=== PATIENT | male | born 1990 | race Two or more races ===

== ENCOUNTER 2016-04-14 16:11 | Emergency (ER) | payer SELFPAY ==
--- NOTE | 2016-04-14 18:43 | UC ---
Respiratory Complaint HPI - HPI Summary HPI Summary: cough, scratchy throat, sweats at night and cough worse at night x 6 months. No fever. No sputum. Pt [place] on a [place] farm who has been in this country x 6 years. He does not smoke cigarettes. No hx of TB and no known exposure to TB. Does not know if he has had BCG. Pt speaks primarily [place]ivian, although he does speak [place]an. I also speak and understand some Bolivian. Pt chooses not to use time analysis clerk services and states he understands me and I in turn voice that I understand him. There is a male co -worker also present in the room who witnesses this interaction. - History of Current Complaint Stated Complaint: CONGESTION Time Seen by Provider: 04/14/16 18:42 Hx Obtained From: Patient, Family/Assistant Floor Covering Printer - male co-worker Onset/Duration: Gradual Onset, Lasting Weeks - 6months, Still Present Timing: Constant Severity Initially: Moderate Severity Currently: Moderate Pain Intensity: 0 Pain Scale Used: 0-10 Numeric Character: Cough: Nonproductive Aggravating Factors: Allergens - possible, but OTC allergy meds did not help Alleviating Factors: Nothing Associated Signs And Symptoms: Negative: Fever, Chills, Nasal Congestion - Risk Factors Pulmonary Embolism Risk Factors: Negative Cardiac Risk Factors: Negative Pseudomonas Risk Factors: Negative Tuberculosis Risk Factors: Negative - Allergies/Home Medications Allergies/Adverse Reactions: Allergies Allergy/AdvReac Type Severity Reaction Status Date / Time antibiotic/unknown Allergy Intermediate Diarrhea Uncoded 04/13/14 17:40 PMH/Surg Hx/FS Hx/Imm Hx Previously Healthy: Yes - Surgical History Surgical History: None - Family History Known Family History: Negative: Respiratory Disease - Social History Occupation: Employed Full-time - migrant horticultural farmer [place] Alcohol Use: None Substance Use Type: None Smoking Status (MU): Never Smoked Tobacco Review of Systems Constitutional: Other - sweats Skin: Negative Eyes: Negative ENT: Negative Respiratory: Cough Cardiovascular: Negative Gastrointestinal: Negative Genitourinary: Negative Motor: Negative Neurovascular: Negative Musculoskeletal: Negative Neurological: Negative Psychological: Negative All Other Systems Reviewed And Are Negative: Yes Physical Exam Triage Information Reviewed: Yes Appearance: Well-Appearing, No Pain Distress, Well-Nourished Vital Signs: bradycardia noted, states it is normal for him. Vital Signs Reviewed: Yes Eyes: Positive: Conjunctiva Clear ENT: Positive: Pharynx normal, TMs normal Neck: Positive: Supple, Nontender, No Lymphadenopathy Respiratory: Positive: Chest non-tender, Lungs clear, Normal breath sounds, No respiratory distress Cardiovascular: Positive: No Murmur, Pulses Normal, Brisk Capillary Refill, Bradycardia Musculoskeletal: Positive: Strength Intact, ROM Intact Neurological: Positive: Alert, Muscle Tone Normal Psychological Exam: Normal Skin: Positive: Other - thumbnail on left and index finger on right with brown vertical streak on fingernail; no clubbing Respiratory Course/Dx - Course Course Of Treatment: discussed diff dx and possibility of doing xray. Pt does not have health insurance and prefers not to have chest xray done at this time after I advised him that the physical exam was normal for the lungs. We also discussed possible TB with cough worse at night and sweats. Pt has not sputum and no fever and no known exposure, has not been back [place] for 6 years. Pt agrees to try empiric treatment for possible allergies (such as dust and mold that he may be exposed to on the farm) and possible bronchospasm/asthma/ bronchitis. I advised him that if he is no better in 10 days, that he should seek medical attention again. Pt and the coworker voice understanding. Pt's discharge papers are printed in Bolivian for him. - Differential Dx/Diagnosis Differential Diagnosis/HQI/PQRI: Asthma, Bronchitis, Lower Resp Infection, Tuberculosis, Other - allergies Provider Diagnoses: allergies. bronchospasm. asthma. bronchitis Discharge - Discharge Plan Condition: Stable Disposition: HOME Prescriptions: Albuterol HFA INHALER* [Ventolin HFA Inhaler*] 2 puff INH Q4H PRN #1 mdi PRN Reason: Cough Azithromycin TAB* [Zithromax TAB (Z-HELDER) 250 mg #6 tabs] 2 tab PO .TODAY, THEN 1 DAILY #1 helder LevoCETirizine TAB (NF) [Xyzal TAB (NF)] 5 mg PO DAILY #30 tab predniSONE TAB* [Deltasone TAB*] 40 mg PO DAILY #10 tab Patient Education Materials: Asthma (ED), Upper Respiratory Infection (ED), Allergies (ED), Bronchospasm (ED) Print Language: PASHTO Referrals: No Primary Care Phys,NOPCP [Primary Care Provider] - Additional Instructions: We have given you a list of providers that are accepting new patients. Dr. Moise recommends that you should seek follow up medical attention in 10-14 days if you are not improved. You should return sooner if you develop new or worsening symptoms.
[2016-04-14 18:44] VITALS: BP 119/69
== END 2016-04-14 19:33 | disposition home or self-care (01) ==
LOC: UCCORT 16:11
DX: T78.40XA Allergy, unspecified, initial encounter (principal); J45.909 Unspecified asthma, uncomplicated; X58.XXXA Exposure to other specified factors, initial encounter; Z88.1 Allergy status to other antibiotic agents
CPT/HCPCS: 99212; G0463

== ENCOUNTER 2017-01-15 15:15 | Emergency (ER) | payer SELFPAY ==
[2017-01-15 16:55] VITALS: BP 116/63
--- NOTE | 2017-01-15 17:23 | RAD ---
Indication: LEFT lower leg pain following injury. Kicked playing soccer. Comparison: No relevant prior exams available on the [facility] PACS for comparison. Technique: AP and lateral views LEFT lower leg. REPORT AND IMPRESSION: Significant medial soft tissue swelling in the proximal to midportion. No conspicuous foreign body or subcutaneous emphysema. Negative for fracture or malalignment.
--- NOTE | 2017-01-15 17:33 | UC ---
Lower Extremity/Ankle HPI - HPI Summary HPI Summary: 26 y/o male presents to the urgent care c/o left lower leg pain and severe swelling s/p injury playing soccer yesterday night. Pt reports he was kicked in the medial aspect of his lef leg by a player. He applied ice and took an ibuprofen PO yesterday. However this morning he woke up with severe swelling and redness around the leg. Pain became worse when he started to walk. Pain is 8 /10 with walking and at touch associated with mild numbness and tingling over the foot. Pt denies fever, SOB, chest pain, N/V/D , abdominal pain. - History of Current Complaint Chief Complaint: UCLowerExtremity Stated Complaint: LEFT LEG SPORTS INJ Time Seen by Provider: 01/15/17 17:12 Hx Obtained From: Patient Onset/Duration: Sudden Onset - yesterday night s/p playing soccer, Lasting Days - 1 day Severity Initially: Moderate Severity Currently: Severe Pain Intensity: 8 Pain Scale Used: 0-10 Numeric Aggravating Factor(s): Ambulation Alleviating Factor(s): Rest Able to Bear Weight: Yes - Risk Factors Gout Risk Factors: Negative DVT Risk Factors: Negative Septic Arthritis Risk Factor: Negative - Allergies/Home Medications Allergies/Adverse Reactions: Allergies Allergy/AdvReac Type Severity Reaction Status Date / Time antibiotic/unknown AdvReac Intermediate Diarrhea Uncoded 01/15/17 16:55 Home Medications: Home Medications Ibuprofen [Ibuprofen 200 MG] 200 mg PO Q6H PRN 01/15/17 [History Confirmed 01/15] Menthol (Topical Analgesic) [Mineral Ice] 2 % EX DAILY PRN 01/15/17 [History Confirmed 01/15/17] Omeprazole CAP* [Prilosec CAP* 20 MG] 20 mg PO DAILY 01/15/17 [History Confirmed 01/15/17] PMH/Surg Hx/FS Hx/Imm Hx Previously Healthy: Yes - Pt denies PMHX - Surgical History Surgical History: None - Family History Known Family History: Positive: Hypertension Negative: Respiratory Disease - Social History Occupation: Employed Full-time Lives: With Family Alcohol Use: None Substance Use Type: None Smoking Status (MU): Never Smoked Tobacco Review of Systems Constitutional: Negative Skin: Bruising - medial aspect ot he left lower leg with pain and swelling Eyes: Negative ENT: Negative Respiratory: Negative Cardiovascular: Negative Gastrointestinal: Negative Genitourinary: Negative Motor: Negative Neurovascular: Negative Musculoskeletal: Negative Neurological: Negative Psychological: Negative Is Patient Immunocompromised?: No All Other Systems Reviewed And Are Negative: Yes Physical Exam Triage Information Reviewed: Yes Appearance: Well-Appearing, No Pain Distress, Well-Nourished - male, Thin Vital Signs: Initial Vital Signs Temp 97.7 F 01/15/17 16:47 Pulse 51 01/15/17 16:47 Resp 18 01/15/17 16:47 BP 116/63 01/15/17 16:47 Pulse Ox 100 01/15/17 16:47 Vital Signs Reviewed: Yes Eyes: Positive: Conjunctiva Clear - PERRLA, EOMI, fundi grossly normal ENT: Positive: Normal ENT inspection, Hearing grossly normal, Pharynx normal, TMs normal, Uvula midline Neck: Positive: Supple, Nontender, No Lymphadenopathy Respiratory: Positive: Chest non-tender, Lungs clear, Normal breath sounds Cardiovascular: Positive: RRR, No Murmur, Pulses Normal, Brisk Capillary Refill Abdomen Description: Positive: Nontender, No Organomegaly, Soft. Negative: CVA Tenderness (R), CVA Tenderness (L) Bowel Sounds: Positive: Present Musculoskeletal: Positive: Other: - Medial aspect midportion of the left lower leg with severe tenderness on palpation, severe swelling, echymosis with brusing around 6cm X 5cm in size. Positive calf tenderness of dorsiflexion. FROM of left knee and left ankle, Strength intact, sensation WNL, capillary refill brisk, pulses WNL. Neurological Exam: Normal Psychological Exam: Normal Skin Exam: Normal Lower Extremity Course/Dx - Course Course Of Treatment: 26 y/o male presents to the urgent care c/o left lower leg pain and severe swelling s/p injury playing soccer yesterday night. Pt reports he was kicked in the medial aspect of his lef leg by a player. He applied ice and took an ibuprofen PO yesterday. However this morning he woke up with severe swelling and redness around the leg. Pain became worse when he started to walk. Pain is 8/10 with walking and at touch associated with mild numbness and tingling over the foot. Pt denies fever, SOB, chest pain, N/V/D , abdominal pain. Hx obtained. Pt with severe tenderness and swelling and hematoma about 6cm x 5cn inb size in the medial aspect of the left lower leg and calf tenderness on examination. Left lower leg X-ray ordered, Impression: Signinficant soft tissue swelling in the proximal midportion of lef lower leg. Negative for fracture. Dr Abel consulted on Pt's symptoms and he evaluated Pt and advised to sent Pt to he [facility] to r/o compartment syndrome. I spoke to Marcy Ngo at the ER and she accepted the Pt. Pt explained on the need to r /o compartment syndorme and the risks of not going to the ER for further evaluation and treatment. Pt understood and agreed with plan of care. Pt is accompanied by Employer and he agreed he will take him to the [facility] by [place]. Pt left the clinic ambulating, hemodynamically stable and A&OX3. - Differential Dx/Diagnosis Differential Diagnosis/HQI/PQRI: Compartment Syndrome, Contusion, Fracture ( Closed), Sprain, Strain, Tendonitis Provider Diagnoses: 1- Left lower pain and swelling s/p injury r/o compartment syndrome. 2- hematoma - Physician Notifications Discussed Patient Care With: Rambo Abel - Dr Abel agreed with Pt's plan of care Discharge - Discharge Plan Condition: Stable Disposition: [facility] DEPARTMENT OF CARE FAC Patient Education Materials: Leg Pain (ED) Referrals: [facility] [Outside] No Primary Care Phys,NOPCP [Primary Care Provider] - Additional Instructions: -Por favor vaya inmediatamente a la emergencia the [facility] en [place]. necesita ser evaluado y descartar la possibilidad de que tenga sindrome de copartimiento. Riego de no ir a la emergencia es perder el pie. -please go immediately to the [facility] at [facility] for further evaluation to r/o compartment syndrome. If you don't go there is the risk of loosing you leg.
== END 2017-01-15 17:52 | disposition short-term general hospital (02) ==
LOC: UCCORT 15:15
DX: S80.12XA Contusion of left lower leg, initial encounter (principal); W50.0XXA Accidental hit or strike by another person, initial encounter; Y93.66 Activity, soccer; Y92.9 Unspecified place or not applicable; M79.662 Pain in left lower leg; R60.0 Localized edema; Z88.1 Allergy status to other antibiotic agents
CPT/HCPCS: 99212; G0463

== ENCOUNTER 2017-01-15 19:03 | Emergency (ER) | payer SELFPAY ==
--- NOTE | 2017-01-15 21:26 | RAD ---
INDICATION: Pain and edema at the LEFT calf following recent injury. COMPARISON: Tibia fibular radiographs of the same date. TECHNIQUE: Heaton scale, color Doppler, and spectral analysis of the deep veins of the LEFT lower extremity. Vessel compression, phasicity, and augmentation assessed. REPORT: The LEFT common femoral, great saphenous, profunda femoral, femoral, popliteal, peroneal, and posterior tibial veins are patent. Corresponding with the site of injury at the medial calf there is a 5.0 x 1.4 x 4.2 cm complex thin-walled fluid collection at the interface between the subcutaneous tissue plane and the muscular fascia most consistent with hematoma given the clinical context. Patency of the RIGHT common femoral vein documented. IMPRESSION: 1. No evidence for LEFT lower extremity deep venous thrombosis. 2. 5.0 x 1.4 x 4.2 cm probable loculated hematoma at the injury site. Correlate with clinical assessment. If there is clinical concern for potential abscess needle aspiration would be suggested.
[2017-01-15 23:16] VITALS: BP 129/55
--- NOTE | 2017-01-16 00:53 | ED ---
Manish Milton Nikita, scribed for Rod Fritz MD on 01/15/17 at 2222 . Lower Extremity - HPI Summary HPI Summary: This patient is a 26 year old M presenting to ED with a chief complaint of L calf pain since last night. Pt was playing soccer when he accidentally got kicked. This morning, the calf was not discolored, but after walking for a bit, the area began to show discoloration. The CC is described as swelling, erythema , and bruising. The patient rates the pain 7/10 in severity. Symptoms aggravated by nothing. Symptoms alleviated by nothing. - History of Current Complaint Chief Complaint: EDExtremityLower Stated Complaint: LT LEG PAIN Time Seen by Provider: 01/15/17 22:12 Hx Obtained From: Patient Mechanism Of Injury: Blunt Trauma Onset/Duration: Still Present Severity Initially: Moderate Severity Currently: Moderate Pain Intensity: 7 Pain Scale Used: 0-10 Numeric Timing: Constant, Lasting Hours Location: Is Discrete @ - L calf Associated Signs And Symptoms: Positive: Other - L calf brusing, swelling and erythema Aggravating Factor(s): Nothing Alleviating Factor(s): Nothing - Allergies/Home Medications Allergies/Adverse Reactions: Allergies Allergy/AdvReac Type Severity Reaction Status Date / Time antibiotic/unknown AdvReac Intermediate Diarrhea Uncoded 01/15/17 19:17 PMH/Surg Hx/FS Hx/Imm Hx Endocrine/Hematology History: Denies: Hx Diabetes Cardiovascular History: Denies: Hx Coronary Artery Disease, Hx Hypertension Infectious Disease History: No Infectious Disease History: Denies: Traveled Outside the [place] in Last 30 Days - Family History Known Family History: Positive: Hypertension Negative: Respiratory Disease - Social History Alcohol Use: None Substance Use Type: Reports: None Smoking Status (MU): Never Smoked Tobacco Review of Systems Positive: Other - L calf pain Positive: Other - bruising, erythema, and swelling of L calf All Other Systems Reviewed And Are Negative: Yes Physical Exam Triage Information Reviewed: Yes Vital Signs On Initial Exam: Initial Vitals Temp Pulse Resp BP Pulse Ox 98.3 F 65 18 125/43 100 01/15/17 19:12 01/15/17 19:12 01/15/17 19:12 01/15/17 19:12 01/15/17 19:12 Vital Signs Reviewed: Yes Appearance: Positive: Well-Appearing, No Pain Distress Skin: Positive: Warm, Dry, Other - 18 x 8 cm ecchymosis on medial aspect of L calf, no pallor Head/Face: Positive: Normal Head/Face Inspection Eyes: Positive: EOMI, LAXMI ENT: Positive: Normal ENT inspection Neck: Positive: Supple, Nontender Respiratory/Lung Sounds: Positive: Clear to Auscultation, Breath Sounds Present Cardiovascular: Positive: RRR, Other - good dorsalis pedis pulses, normal capillary refills Abdomen Description: Positive: Nontender, Soft Bowel Sounds: Positive: Present Musculoskeletal: Positive: Normal, Strength/ROM Intact Neurological: Positive: Normal, Sensory/Motor Intact, Alert, Oriented to Person Place, Time, Other - no pain with passive ROM in ankle; medial aspect of L calf is tender to palpation, lateral aspect is non-tender and soft Psychiatric: Positive: Affect/Mood Appropriate Diagnostics - Vital Signs Vital Signs Temp Pulse Resp BP Pulse Ox 01/15/17 19:12 98.3 F 65 18 125/43 100 - Laboratory Lab Statement: Any lab studies that have been ordered have been reviewed, and results considered in the medical decision making process. - Ultrasound No standard instances Ultrasound Interpretation Completed By: Radiologist - Venous Doppler study reveals 1. No evidence for LEFT lower extremity deep venous thrombosis. 2. 5.0 x 1.4 x 4.2 cm probable loculated hematoma at the injury site. Correlate with clinical assessment. If there is clinical concern for potential abscess needle aspiration would be suggested. ED physician has reviewed this radiology report and agrees. Re-Evaluation - Re-Evaluation First Eval Re-Evaluation Time: 23:02 Comment: Discussed with pt about plan to discharge. Recommends that the pt follow up with Dr. Gregory. Lower Extremity Course/Dx - Course Assessment/Plan: This patient is a 26 year old M presenting to ED with a chief complaint of L calf pain since last night. Pt was playing soccer when he accidentally got kicked. This morning, the calf was not discolored, but after walking for a bit, the area began to show discoloration. The CC is described as swelling, erythema, and bruising. The patient rates the pain 7/10 in severity. Symptoms aggravated by nothing. Symptoms alleviated by nothing. Medications reviewed. Allergies noted. Venous Doppler study reveals 1. No evidence for LEFT lower extremity deep venous thrombosis. 2. 5.0 x 1.4 x 4.2 cm probable loculated hematoma at the injury site. Correlate with clinical assessment. If there is clinical concern for potential abscess needle aspiration would be suggested. ED physician has reviewed this radiology report and agrees. Consulted Dr. Gregory at 2248 who agrees that the pt's condition does not sound like compartment syndrome. Agrees to follow up with the pt. Pt will be discharged. Pt is agreeable with this plan. PAIN/SWELLING IS ONLY ON MEDIAL ASPECT. THE POSTERIOR AND LATERAL CALF IS SOFT AND NON TENDER. THERE IS NO NEUROLOGIC DEFICIT. NORMAL DP/PT PULSE. NORMAL CAP REFILL DISTALLY. NO PAIN IN THE CALF WITH ANKLE PASSIVE ROM. THIS WAS DISCUSSED WITH ORTHOPEDICS ASSEMBLY DETAILER, DR GREGORY. HEMATOMA ON U/S. NO CLINICAL SIGNS OF COMPARTMENT SYNDROME AT THIS TIME. THIS WAS ALL DISCUSSED WITH THE PATIENT. F/U ORTHO; RETURN IF WORSE. - Diagnoses Provider Diagnoses: Hematoma of left lower extremity - Physician Notifications Discussed Care Of Patient With: Julio Gregory Time Discussed With Above Provider: 22:48 Instructed by Provider To: Other - Consulted Dr. Gregory who agrees that the pt' s condition does not sound like compartment syndrome. Agrees to follow up with the pt. Discharge - Discharge Plan Condition: Stable Disposition: HOME Patient Education Materials: Hematoma (ED) Forms: *Work Release Referrals: [facility] [Outside] Julio Gregory MD [Medical Doctor] - No Primary Care Phys,NOPCP [Primary Care Provider] - Additional Instructions: FOLLOW UP WITH ORTHOPEDICS, DR GREGORY. REST AND ELEVATE THE LEG. TAKE IBUPROFEN 600MG EVERY 6 HOURS NEEDED. RETURN TO THE EMERGENCY DEPARTMENT FOR ANY WORSENING OF YOUR CONDITION; NUMBNESS , LOSS OF BLOOD CIRCULATION, PAIN WITH PASSIVE MOTION, FEVER OR QUESTIONS OR CONCERNS. The documentation as recorded by the Manish urbina Nikita accurately reflects the service I personally performed and the decisions made by me, Rod Fritz MD.
== END 2017-01-15 23:15 | disposition home or self-care (01) ==
LOC: ED 19:03
DX: S80.12XA Contusion of left lower leg, initial encounter (principal); M79.662 Pain in left lower leg; W50.0XXA Accidental hit or strike by another person, initial encounter; Y93.66 Activity, soccer; Y92.9 Unspecified place or not applicable; Y99.9 Unspecified external cause status
CPT/HCPCS: 99282

== ENCOUNTER 2017-09-21 14:58 | Emergency (ER) | payer SELFPAY ==
[2017-09-21 15:26] VITALS: BP 113/60
--- NOTE | 2017-09-21 16:07 | UC ---
Elbow Pain - HPI Summary HPI Summary: right elbow pain x 10 days s/p fall on his right elbow 10 days ago not the back of the elbow is swollen, red, painful and darning fluid no fever, no chills - History of Current Complaint Chief Complaint: UCUpperExtremity Stated Complaint: RT ELBOW COMP Time Seen by Provider: 09/21/17 15:21 Hx Obtained From: Patient Onset/Duration: Days - 10 Severity Currently: Moderate Pain Intensity: 0 Location Of Pain: Is Discrete @ - right elbow Character: Aching, Throbbing Aggravating Factor(s): Movement, Pulling, Twisting Alleviating Factor(s): Nothing Associated Signs And Symptoms: Positive: Swelling, Redness - Allergies/Home Medications Allergies/Adverse Reactions: Allergies Allergy/AdvReac Type Severity Reaction Status Date / Time antibiotic/unknown AdvReac Intermediate Diarrhea Uncoded 09/21/17 15:16 PMH/Surg Hx/FS Hx/Imm Hx Previously Healthy: Yes - Surgical History Surgical History: None - Family History Known Family History: Positive: Hypertension Negative: Respiratory Disease - Social History Alcohol Use: None Substance Use Type: None Smoking Status (MU): Never Smoked Tobacco Review of Systems Constitutional: Negative Skin: Negative Eyes: Negative ENT: Negative Respiratory: Negative Is Patient Immunocompromised?: No All Other Systems Reviewed And Are Negative: Yes Physical Exam Triage Information Reviewed: Yes Appearance: Well-Appearing, No Pain Distress, Well-Nourished Vital Signs: Initial Vital Signs Temp 98.3 F 09/21/17 15:17 Pulse 56 09/21/17 15:17 Resp 18 09/21/17 15:17 BP 113/60 09/21/17 15:17 Pulse Ox 99 09/21/17 15:17 Vital Signs Reviewed: Yes Eyes: Positive: Conjunctiva Clear ENT: Positive: Normal ENT inspection, Hearing grossly normal, Pharynx normal Neck: Positive: Supple, Nontender, No Lymphadenopathy Respiratory: Positive: Chest non-tender, Lungs clear, Normal breath sounds Cardiovascular: Positive: RRR, No Murmur, Pulses Normal Musculoskeletal: Positive: Other: - right elbow : + abrasion + olecranon busitis , + pain and swellign, + erythema, tender to touch + discharge Elbow Pain Course/Dx - Differential Dx/Diagnosis Provider Diagnoses: right elbow bursitis Discharge - Sign-Out/Discharge Documenting (check all that apply): Patient Departure - Discharge Plan Condition: Stable Disposition: HOME Prescriptions: Cephalexin CAP* [Keflex CAP*] 500 mg PO TID #30 cap Patient Education Materials: Elbow Bursitis (ED) Referrals: No Primary Care Phys,NOPCP [Primary Care Provider] - 7 Days - Billing Disposition and Condition Condition: STABLE Disposition: Home
--- NOTE | 2017-09-21 16:15 | RAD ---
INDICATION: Right elbow injury COMPARISON: None TECHNIQUE: AP, lateral, and oblique views were obtained. FINDINGS: The bony structures, joint spaces, and soft tissues are normal for age. IMPRESSION: NO ACUTE BONY FINDINGS.
== END 2017-09-21 16:35 | disposition home or self-care (01) ==
LOC: UCCORT 14:58
DX: M70.31 Other bursitis of elbow, right elbow (principal); Z88.1 Allergy status to other antibiotic agents
CPT/HCPCS: 99212; G0463

== ENCOUNTER 2017-10-24 09:25 | Emergency (ER) | payer SELFPAY ==
[2017-10-24 09:54] VITALS: BP 126/57
--- NOTE | 2017-10-24 10:05 | UC ---
Lower Extremity/Ankle HPI - HPI Summary HPI Summary: 27 y/o Australian speaking male presents to the urgent care c/o RT mid foot pain w / weight bearing since he woke up for the past 2 days. Pt als has posterior Rt lower leg pain , sharp when he walks. Pain is 8/10 sharp, Today he is walking w / limping. There is mild swelling over the dorsal side off w/o any ecchymosis or erythema. Pt doesn't recall any injury. Pt works in a [employer] is [employer] and he is accompany by someone from the farm. Pt has taking Ibuprofen 200mg PO last night to alleviate symptoms. Pt denies numbness or tingling sensation over the lower extremity, fever, SOB, chest pain,palpitations, abdominal pain, N/V/D. - History of Current Complaint Chief Complaint: UCLowerExtremity Stated Complaint: RIGHT FOOT COMPLAINT Time Seen by Provider: 10/24/17 10:04 Hx Obtained From: Patient Onset/Duration: Sudden Onset, Lasting Days - 2 days, Still Present, Worse Since - today Severity Initially: Mild Severity Currently: Moderate Pain Intensity: 8 Pain Scale Used: 0-10 Numeric Aggravating Factor(s): Standing, Ambulation Alleviating Factor(s): Rest, OTC Meds Able to Bear Weight: Yes - Risk Factors Gout Risk Factors: Negative DVT Risk Factors: Negative Septic Arthritis Risk Factor: Negative - Allergies/Home Medications Allergies/Adverse Reactions: Allergies Allergy/AdvReac Type Severity Reaction Status Date / Time cephalexin Allergy Oral Verified 10/24/17 09:51 Blisters antibiotic/unknown AdvReac Intermediate Diarrhea Uncoded 10/24/17 09:51 PMH/Surg Hx/FS Hx/Imm Hx Previously Healthy: Yes - Pt denies pMHX - Surgical History Surgical History: None - Family History Known Family History: Positive: Hypertension Negative: Respiratory Disease - Social History Occupation: Employed Full-time Lives: With Family Alcohol Use: None Substance Use Type: None Smoking Status (MU): Never Smoked Tobacco Review of Systems Constitutional: Negative Skin: Other - mild swelling over the dorsal RT foot Eyes: Negative ENT: Negative Respiratory: Negative Cardiovascular: Negative Gastrointestinal: Negative Genitourinary: Negative Motor: Negative Neurovascular: Negative Musculoskeletal: Decreased ROM - RT foot, Other: - RT foot and RT lower leg Neurological: Negative Psychological: Negative Is Patient Immunocompromised?: No All Other Systems Reviewed And Are Negative: Yes Physical Exam - Summary Physical Exam Summary: Vital Signs Reviewed: Yes Appearance: Well-Appearing, No Pain Distress, Well-Nourished, male sitting in the examining table w/o any apparent pain distress Eyes: Positive: Conjunctiva Clear - PERRLA< DENICE, fundi grossly WNL ENT: Positive: Normal ENT inspection, Hearing grossly normal, Pharynx normal, TMs normal, Uvula midline Neck: Positive: Supple, Nontender, No Lymphadenopathy Respiratory: Positive: Chest non-tender, Lungs clear, Normal breath sounds, No respiratory distress Cardiovascular: Positive: RRR, No Murmur, Pulses Normal, Brisk Capillary Refill Abdomen Description: Positive: Nontender, No Organomegaly, Soft. Negative: CVA Tenderness (R), CVA Tenderness (L) Bowel Sounds: Positive: Present Extremities: Pt is able to bear weight but ambulate with mild limping.R extremity ithout deformity or asymmetry when compared to the L. No soft tissue swelling or edema. No overlying erythema, warmth, discoloration. No lesions or break in skin integrity. Diameter of calves 14cm bilateraaly . Soft tissues of posterior lower legs are soft, supple, nontender and no palpable cords or evidence of thrombophlebitis. No evidence of gangrene or compartment syndrome. Medial thigh is without soft tissue swelling or tender to palpation. Negative Homans sign positive.. No proximal lymphangitis or lymphadenopathy.. RT foot : Positive point tenderness over the dorsal side at the base on the 3rd and 4th metatarsal w/ mild swelling and erythema. Decrease ROM on flexion and extension , No surface trauma, The R foot is without obvious asymmetry or deformity when compared to the L foot. No bony step-off, No tenderness to palpation over toes, no tenderness of hindfoot, Decrease plantar/dorsiflexion, inversion/eversion due to pain. Distal motor and neurovascular status are intact. Neurological Exam: Normal Psychological Exam: Normal Skin Exam: Normal Triage Information Reviewed: Yes Vital Signs: Initial Vital Signs Temp 98 F 10/24/17 09:48 Pulse 67 10/24/17 09:48 Resp 15 10/24/17 09:48 BP 126/57 10/24/17 09:48 Pulse Ox 99 10/24/17 09:48 Lower Extremity Course/Dx - Course Course Of Treatment: 27 y/o Australian speaking male presents to the urgent care c/ o RT mid foot pain w/ weight bearing since he woke up for the past 2 days. Pt als has posterior Rt lower leg pain , sharp when he walks. Pain is 8/10 sharp, Today he is walking w/ limping. There is mild swelling over the dorsal side off w/o any ecchymosis or erythema. Pt doesn't recall any injury. 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 Pt has taking Ibuprofen 200mg PO last night to alleviate symptoms. Pt denies numbness or tingling sensation over the lower extremity, fever, SOB, chest pain,palpitations , abdominal pain, N/V/D. Hx obtained. PE performed,. RT foot X-ray ordered, Impression:There was no fracture, dislocation, soft tissue swelling or FB noted. Duplex US ordered to r/o DVT: Negative. Probably RT foot sprain. Pt's foot immobilized with pancho-bandage and given a post-op shoe to avoid flexion. Advised RICE, and Rx Ibuprofen PO for pain and swelling, Use crutches he has at home to avoid weight berain until symptoms resolve. If not improvement of symptoms to f/u with Orthopedic DR Conde referral for further evaluation and treatment. Pt understood and agreed with D/C instructions. Pt left clinic ambulating, and hemodynamically stable. - Differential Dx/Diagnosis Differential Diagnosis/HQI/PQRI: Compartment Syndrome, Contusion, Fracture ( Closed), Gout, Sprain, Strain, Tendonitis Provider Diagnoses: 1- Acute RT Lower leg and foot pain. 2- RT fopot sprain Discharge - Sign-Out/Discharge Documenting (check all that apply): Patient Departure - D/C home All imaging exams completed and their final reports reviewed: Yes - Discharge Plan Condition: Stable Disposition: HOME Prescriptions: Ibuprofen TAB* [Motrin TAB* 800 MG] 800 mg PO Q6H PRN #30 tab PRN Reason: Pain Patient Education Materials: Foot Sprain (ED), Leg Pain (ED) Referrals: [facility] [Outside] - 1 Week Phillip Conde MD [Medical Doctor] - 1 Week Additional Instructions: 1-Please take medications as directed after meals to alleviate pain and swelling. 2-Please apply ice, keep your foot immobilized with the Pancho bandage and post-op shoe. Avoid strenuous exercise or standing for long periods of time, use the crutches you have at home to avoid weight bearing 3- Please f/u with your PCP or Orthopedic DR Conde in 1 week inf not improvement of symptoms for further evaluation and treatment. - Billing Disposition and Condition Condition: STABLE Disposition: Home Attestation Statement User Type: Provider
[2017-10-24] MEDS ORDERED: Ibuprofen TAB* 400 MG PO ONE (10:33)
--- NOTE | 2017-10-24 10:54 | RAD ---
HISTORY: Acute RT foot pain COMPARISONS: None VIEWS: 3 , Frontal, lateral, and oblique views of the right foot FINDINGS: BONE DENSITY: Normal. BONES: There is no displaced fracture. JOINTS: There is no arthropathy. ALIGNMENT: There is no dislocation. SOFT TISSUES: Unremarkable. OTHER FINDINGS: None. IMPRESSION: NO ACUTE OSSEOUS INJURY. IF SYMPTOMS PERSIST, RECOMMEND REPEAT IMAGING.
--- NOTE | 2017-10-24 11:25 | RAD ---
Indication: Right calf pain.. Duplex Doppler sonography of the deep venous system of the right lower extremity deep venous system was performed. Bilaterally the common femoral veins appear patent and compressible. Right proximal greater saphenous vein, proximal deep femoral vein, femoral vein, popliteal vein, posterior tibial veins and peroneal veins appear patent and compressible. IMPRESSION: NO EVIDENCE OF DEEP VENOUS THROMBOSIS IS IDENTIFIED.
== END 2017-10-24 11:47 | disposition home or self-care (01) ==
LOC: UCCORT 09:25
DX: M79.604 Pain in right leg (principal); S93.601A Unspecified sprain of right foot, initial encounter; X58.XXXA Exposure to other specified factors, initial encounter; Y93.9 Activity, unspecified; Y92.79 Other farm location as the place of occurrence of the external cause; Y99.0 Civilian activity done for income or pay; Z88.1 Allergy status to other antibiotic agents
CPT/HCPCS: 99213; A9270-GY; G0463

== ENCOUNTER 2018-05-21 14:01 | Emergency (ER) | payer SELFPAY ==
[2018-05-21 14:48] VITALS: BP 114/60
--- NOTE | 2018-05-21 15:47 | UC ---
Lower Extremity/Ankle HPI - HPI Summary HPI Summary: Intermittent right foot pain since October Started again three days ago 12/12 with wt bearing none at rest prior episodes have involved big toe - History of Current Complaint Chief Complaint: UCLowerExtremity Stated Complaint: RIGHT FOOT CONCERN Time Seen by Provider: 05/21/18 15:31 Hx Obtained From: Patient Onset/Duration: Gradual Onset, Lasting Days Severity Initially: Severe Severity Currently: Severe Pain Intensity: 10 Pain Scale Used: 0-10 Numeric Aggravating Factor(s): Standing, Ambulation Alleviating Factor(s): Rest Able to Bear Weight: Yes Feet (Multiple View): 1 - pain and swelling here - Allergies/Home Medications Allergies/Adverse Reactions: Allergies Allergy/AdvReac Type Severity Reaction Status Date / Time cephalexin Allergy Oral Verified 05/21/18 14:48 Blisters antibiotic/unknown AdvReac Intermediate Diarrhea Uncoded 05/21/18 14:48 Home Medications: Home Medications Ibuprofen TAB* [Motrin TAB* 800 MG] 400 mg PO Q6H PRN 05/21/18 [History] PMH/Surg Hx/FS Hx/Imm Hx Previously Healthy: Yes - Surgical History Surgical History: None - Family History Known Family History: Positive: Hypertension, Diabetes Negative: Respiratory Disease - Social History Alcohol Use: None Substance Use Type: None Smoking Status (MU): Never Smoked Tobacco Review of Systems All Other Systems Reviewed And Are Negative: Yes Constitutional: Positive: Negative Skin: Positive: Negative Eyes: Positive: Negative ENT: Positive: Negative Respiratory: Positive: Negative Cardiovascular: Positive: Negative Gastrointestinal: Positive: Negative Genitourinary: Positive: Negative Motor: Positive: Negative Neurovascular: Positive: Negative Musculoskeletal: Positive: Arthralgia Neurological: Positive: Negative Psychological: Positive: Negative Physical Exam Triage Information Reviewed: Yes Appearance: Well-Appearing, No Pain Distress, Well-Nourished Vital Signs: Initial Vital Signs Temp 97.7 F 05/21/18 14:42 Pulse 53 05/21/18 14:42 Resp 16 05/21/18 14:42 BP 114/60 05/21/18 14:42 Pulse Ox 99 05/21/18 14:42 Vital Signs Reviewed: Yes Eyes: Positive: Conjunctiva Clear ENT: Positive: Hearing grossly normal. Negative: Nasal congestion, Nasal drainage, Tonsillar exudate, Trismus, Hoarse voice Dental Exam: Normal Neck: Positive: Supple Respiratory: Positive: Lungs clear, Normal breath sounds, No respiratory distress Cardiovascular Exam: Normal Cardiovascular: Positive: RRR, No Murmur Musculoskeletal: Positive: ROM Intact, Other: - antalgic gait, see image Neurological Exam: Normal Neurological: Positive: Alert Psychological Exam: Normal Skin Exam: Normal Diagnostics - Radiology No standard instances Radiology Interpretation Completed By: Radiologist Summary of Radiographic Findings: neg Lower Extremity Course/Dx - Differential Dx/Diagnosis Provider Diagnosis: Right foot pain, Gout attack Discharge - Sign-Out/Discharge Documenting (check all that apply): Patient Departure All imaging exams completed and their final reports reviewed: Yes - Discharge Plan Condition: Stable Disposition: HOME Prescriptions: predniSONE [Prednisone 20 MG TAB] 60 mg PO DAILY #6 tab Patient Education Materials: Low Purine Diet (ED), Gout (ED) Print Language: CHINESE Forms: *Work Release Referrals: Phillip Conde MD [Medical Doctor] - 5 Days Additional Instructions: You MAY have gout I suggest you get rechecked next week blood work is pending you may use your raymond wrap and post-op shoe - Billing Disposition and Condition Condition: STABLE Disposition: Home
[2018-05-21] MEDS ORDERED: predniSONE TAB* 20 MG PO ONE (16:41)
[2018-05-22 10:56] LABS: ABS Basophils 0 10^3/ul (0-0.2); ABS Eosinophils 0.2 10^3/ul (0-0.6); ABS Lymphocytes 1.9 10^3/ul (1.0-4.8); ABS Monocytes 0.4 10^3/ul (0-0.8); ABS Neutrophils 2.9 10^3/ul (1.5-7.7); ABS Nucleated RBC 0 10^3/ul; Eosinophil % 3.5 %; Hematocrit 42 % (36-46); Hemoglobin 14.4 g/dL (14.0-18.0); Lymphocyte % 34.7 %; Mean Corpuscular HGB Conc 34 g/dL (31-36); Mean Corpuscular Hemoglobin 30 pg (27-31); Mean Corpuscular Volume 87 fL (80-94); Nucleated Red Blood Cells % 0.4; Platelet Count 247 10^3/uL (150-450); Red Blood Count 4.84 10^6 /uL (4.18-5.48); Red Cell Distribution Width 13 % (10.5-15); White Blood Count 5.4 10^3/uL (3.5-10.8)
[2018-05-22 17:54] LABS: Erythrocyte Sed Rate 8 mm/Hr (0-15)
== END 2018-05-21 16:56 | disposition home or self-care (01) ==
LOC: UCCORT 14:01
DX: M79.671 Pain in right foot (principal); M10.9 Gout, unspecified; R26.89 Other abnormalities of gait and mobility; Z88.1 Allergy status to other antibiotic agents
CPT/HCPCS: 36415; 84550; 85025; 85652; 99212; G0463; J7512

== ENCOUNTER 2018-10-10 09:38 | Emergency (ER) | payer OTHER ==
[2018-10-10 10:19] VITALS: BP 105/52
--- NOTE | 2018-10-10 12:05 | UC ---
Upper Extremity HPI - HPI Summary HPI Summary: Pt presents with c/o left hand, forearm and elbow pain. He reports that he fell from standing on 10/05/18 and has continued c/o left hand pain and swelling an left forearm pain. Pt has been applying ice and taking ibuprofen with little to no improvement of pain. - History of Current Complaint Chief Complaint: UCUpperExtremity Stated Complaint: LEFT HAND/ELBOW PAIN Time Seen by Provider: 10/10/18 10:46 Hx Obtained From: Patient ?: No Onset/Duration: Sudden Onset, Lasting Days, Still Present Severity Initially: Moderate Severity Currently: Moderate Pain Intensity: 5 Pain Scale Used: 0-10 Numeric Location Of Pain: Is Discrete @ - left hand, forearm and elbow Character: Dull, Aching, Stiffness Aggravating Factor(s): Movement, Lifting, Flexion, Extension, Internal/External Rotation, Abduction, Adduction Alleviating Factor(s): Rest Associated Signs And Symptoms: Positive: Swelling Related History: Dominant Hand Right - Risk Factors Non-Orthopedic Risk Factor: Negative DVT Risk Factors: Negative Septic Arthritis Risk Factor: Negative Compartment Syndrome Risk Factors: Pain - Allergies/Home Medications Allergies/Adverse Reactions: Allergies Allergy/AdvReac Type Severity Reaction Status Date / Time cephalexin Allergy Oral Verified 10/10/18 10:13 Blisters antibiotic/unknown AdvReac Intermediate Diarrhea Uncoded 10/10/18 10:13 PMH/Surg Hx/FS Hx/Imm Hx Previously Healthy: Yes - Surgical History Surgical History: None - Family History Known Family History: Positive: Hypertension, Diabetes Negative: Respiratory Disease - Social History Occupation: Employed Full-time Lives: With Family Alcohol Use: None Substance Use Type: None Smoking Status (MU): Never Smoked Tobacco Have You Smoked in the Last Year: No - Immunization History Vaccination Up to Date: Yes Review of Systems All Other Systems Reviewed And Are Negative: Yes Constitutional: Positive: Negative Skin: Positive: Negative Eyes: Positive: Negative ENT: Positive: Negative Respiratory: Positive: Negative Cardiovascular: Positive: Negative Gastrointestinal: Positive: Negative Genitourinary: Positive: Negative Motor: Positive: Decreased ROM - left hand and forearm, Weakness Neurovascular: Positive: Negative Musculoskeletal: Positive: Arthralgia - left hand and forearm, Decreased ROM - left hand and forearm, Edema - left hand, Myalgia Neurological: Positive: Negative Psychological: Positive: Negative Is Patient Immunocompromised?: No Physical Exam Triage Information Reviewed: Yes Appearance: Pain Distress Vital Signs: Initial Vital Signs Temp 97.4 F 10/10/18 10:14 Pulse 55 10/10/18 10:14 Resp 15 10/10/18 10:14 BP 105/52 10/10/18 10:14 Pulse Ox 100 10/10/18 10:14 Vital Signs Reviewed: Yes Eye Exam: Normal ENT: Positive: Hearing grossly normal Dental Exam: Normal Neck exam: Normal Respiratory Exam: Normal Musculoskeletal: Positive: Strength Limited @ - left forearma nd hand, ROM Limited @ - left elbow and forearm, Edema @ - left hand, non pitting Neurological Exam: Normal Psychological Exam: Normal Skin Exam: Normal Diagnostics - Radiology No standard instances Radiology Interpretation Completed By: Radiologist - 4 views of the left hand demonstrates positive ulnar variance. Otherwise there is no fracture or dislocation. No other bone or joint abnormality is identified. IMPRESSION: No fracture of the left hand is noted. 4 views of left elbow demonstrates no fracture. No other bone or joint abnormality is identified. No joint effusion is noted IMPRESSION: No fracture of the left elbow is noted. Upper Extremity Course/Dx - Differential Dx/Diagnosis Differential Diagnosis/HQI/PQRI: Contusion, Strain, Sprain Provider Diagnosis: Contusion of left hand, Injury of left forearm and wrist Discharge - Sign-Out/Discharge Documenting (check all that apply): Patient Departure All imaging exams completed and their final reports reviewed: Yes - Discharge Plan Condition: Stable Disposition: HOME Patient Education Materials: Wrist Injury (ED), R.I.C.E. Treatment (ED), Arm Pain (ED) Print Language: MOZAMBICAN Forms: *Work Release Referrals: [facility] [Outside] - If Needed Phillip Conde MD [Medical Doctor] - If Needed No Primary Care Phys,NOPCP [Primary Care Provider] - - Billing Disposition and Condition Condition: STABLE Disposition: Home
[2018-10-10 15:27] LABS: HIV 4th Generation Negative (Negative)
== END 2018-10-10 11:14 | disposition home or self-care (01) ==
LOC: UCCORT 09:38
DX: S60.222A Contusion of left hand, initial encounter (principal); S69.92XA Unspecified injury of left wrist, hand and finger(s), initial encounter; S59.912A Unspecified injury of left forearm, initial encounter; W19.XXXA Unspecified fall, initial encounter; Y92.9 Unspecified place or not applicable
CPT/HCPCS: 36415; 87389; 99212; G0463